=== PATIENT | female | born 1985 | race Two or more races ===

== ENCOUNTER 2019-05-19 10:30 | Emergency (ER) | payer MEDICAID, OTHER ==
[~2019-05-19] VITALS: Ht 157.5 cm; Wt 73.5 kg
[2019-05-19] MEDS ORDERED: IBUPROFEN 600 MG TAB PO ONE (11:00)
[2019-05-19 13:43] VITALS: BP 109/64
== END 2019-05-19 14:12 | disposition home or self-care (01) ==
LOC: ER 10:30
DX: J06.9 Acute upper respiratory infection, unspecified (principal); R11.2 Nausea with vomiting, unspecified; R51 Headache

== ENCOUNTER 2019-11-13 22:31 | Emergency (ER) | payer MEDICAID ==
[~2019-11-13] VITALS: Ht 157.5 cm; Wt 78.9 kg
[2019-11-13 23:05] VITALS: BP 134/84
[2019-11-13 23:42] LABS: Urine Bacteria NONE SEEN /hpf (None Seen); Urine Blood 2+ /uL (Negative); Urine Mucus FEW (None Seen); Urine Specific Gravity 1.029 (1.001-1.035); Urine WBC 8 /hpf (0 - 5)
== END 2019-11-14 01:30 | disposition home or self-care (01) ==
LOC: ER 22:32
DX: N39.0 Urinary tract infection, site not specified (principal)
CPT/HCPCS: 74176; 81001; 81025

== ENCOUNTER 2020-11-02 15:58 | Inpatient (IN) | payer MEDICAID ==
[~2020-11-02] VITALS: Ht 157.5 cm; Wt 76.6 kg
[2020-11-02] MEDS ORDERED: ACETAMINOPHEN 325 MG TAB PO ONE (16:15)
[2020-11-02 16:45] LABS: Basophils # (auto) 0.1 10 ^3/uL (0-0.2); Basophils % (auto) 0.7 % (0.0-2.0); Eosinophils # (auto) 0.1 10 ^3/uL (0-0.8); Eosinophils % (auto) 0.5 % (0.0-7.0); Hematocrit 40.3 % (36.0-46.0); Hemoglobin 13.4 g/dL (12.2-16.2); Lymphocytes # (auto) 0.6 10 ^3/uL (0.4-5.4); Mean Corpuscular Hemoglobin 25.6 pg (28.0-32.0); Mean Corpuscular Hgb Conc. 33.1 g/dL (32.0-36.0); Mean Corpuscular Volume 77.2 fL (80.0-100.0); Monocytes # (auto) 1.1 10 ^3/uL (0-1.3); Monocytes % (auto) 8.9 % (0.0-12.0); Neutrophils # (auto) 10.5 10 ^3/uL (1.6-8.6); Neutrophils % (auto) 84.9 % (37.0-80.0); Red Blood Cells 5.22 10^6/uL (4.0-5.20); Red Cell Distribution Width 15.8 % (11.8-14.3); White Blood Cell 12.4 10^3/uL (4.4-10.8)
[2020-11-02 17:02] LABS: Calcium 8.5 mg/dL (8.5-10.1); Potassium 3.6 mmol/L (3.5-5.1)
[2020-11-02 17:04] LABS: BUN/Creatinine Ratio 7.7
[2020-11-02] MEDS ORDERED: SODIUM CHLORIDE 0.9% 1,000 ML IVB ONE (17:45)
[2020-11-02] MEDS ORDERED: ONDANSETRON HCL 4 MG/2 ML VIAL IV ONE (17:45)
[2020-11-02 18:21] LABS: Magnesium 1.8 mg/dL (1.6-2.6)
[2020-11-02 19:34] LABS: Urine Bacteria FEW /hpf (None Seen); Urine Blood 2+ /uL (Negative); Urine Hyaline Cast MANY /lpf (0 - 2); Urine Mucus MANY (None Seen); Urine Specific Gravity 1.029 (1.001-1.035); Urine WBC 40 /hpf (0 - 5); Urine WBC Clumps PRESENT /hpf (None Seen)
[2020-11-02] MEDS ORDERED: SODIUM CHLORIDE 0.9% 1,000 ML IV ONE (21:00)
[2020-11-02] MEDS ORDERED: levoFLOXacin 500MG 100 ML IV ONE (21:00)
[2020-11-02] MEDS ORDERED: IOHEXOL 300 MG/ML 100ML BOTTLE IJ ONE (21:12)
[2020-11-02 21:40] LABS: Albumin 3.7 g/dL (3.4-5.0); Bilirubin, Direct 0.2 mg/dL (0-0.2)
[2020-11-02 21:42] LABS: Bilirubin, Total 0.8 mg/dL (0.2-1.0); Total Protein 7.6 g/dL (6.4-8.2)
[2020-11-02] MEDS ORDERED: metroNIDAZOLE 500MG/100ML 100 ML IV ONE (22:30)
[2020-11-02] MEDS ORDERED: HYDROcodone-ACET 5/325MG TAB PO PRN (23:00)
[2020-11-02] MEDS ORDERED: ONDANSETRON HCL 4 MG/2 ML VIAL IV PRN (23:00)
[2020-11-02] MEDS ORDERED: ACETAMINOPHEN 325 MG TAB PO PRN (23:00)
[2020-11-03] MEDS: metroNIDAZOLE 500MG/100ML 100 ML IV SCH ×3 (06:34→22:10)
[2020-11-03 07:24] LABS: Basophils # (auto) 0.1 10 ^3/uL (0-0.2); Basophils % (auto) 0.9 % (0.0-2.0); Eosinophils # (auto) 0.1 10 ^3/uL (0-0.8); Hemoglobin 11.9 g/dL (12.2-16.2); Lymphocytes # (auto) 1.2 10 ^3/uL (0.4-5.4); Monocytes # (auto) 1.2 10 ^3/uL (0-1.3); Red Cell Distribution Width 15.5 % (11.8-14.3)
[2020-11-03 07:26] LABS: Eosinophils % (auto) 1.2 % (0.0-7.0); Hematocrit 34.3 % (36.0-46.0); Lymphocytes % (auto) 16.2 % (10.0-50.0); Mean Corpuscular Hemoglobin 26.6 pg (28.0-32.0); Mean Corpuscular Hgb Conc. 34.8 g/dL (32.0-36.0); Mean Corpuscular Volume 76.3 fL (80.0-100.0); Neutrophils # (auto) 4.9 10 ^3/uL (1.6-8.6); Neutrophils % (auto) 65.7 % (37.0-80.0); Nucleated Red Blood Cells % 0.1 %; Red Blood Cells 4.49 10^6/uL (4.0-5.20); White Blood Cell 7.5 10^3/uL (4.4-10.8)
[2020-11-03 07:51] LABS: Calcium 8.2 mg/dL (8.5-10.1); Potassium 3.2 mmol/L (3.5-5.1)
[2020-11-03 07:54] LABS: BUN/Creatinine Ratio 10.2
[2020-11-03] MEDS: levoFLOXacin 500MG 100 ML IV SCH (10:25)
[2020-11-03] MEDS: PANTOPRAZOLE 40 MG/10 ML VIAL INJ IV SCH (10:26)
[2020-11-03 17:00] VITALS: BP 126/86
[2020-11-03 22:00] VITALS: BP 107/74
[2020-11-04 05:00] VITALS: BP 100/73
[2020-11-04] MEDS: metroNIDAZOLE 500MG/100ML 100 ML IV SCH (06:45)
[2020-11-04 09:00] VITALS: BP 119/68
[2020-11-04] MEDS: levoFLOXacin 500MG 100 ML IV SCH (09:02)
[2020-11-04] MEDS: PANTOPRAZOLE 40 MG/10 ML VIAL INJ IV SCH (09:02)
[2020-11-04 10:21] VITALS: BP 119/68
[2020-11-04 12:36] VITALS: BP 111/66
== END 2020-11-04 13:45 | disposition home or self-care (01) | DRG 249 ==
LOC: ER 15:58 → TELE 22:56 → TELE-WESTW 11-03 15:48
PROVIDERS: ADMIT Internal Medicine; ATTEND Internal Medicine
DX: A09 Infectious gastroenteritis and colitis, unspecified (principal); D72.829 Elevated white blood cell count, unspecified; N39.0 Urinary tract infection, site not specified; R53.83 Other fatigue; R59.1 Generalized enlarged lymph nodes; Z20.822 Contact with and (suspected) exposure to COVID-19
CPT/HCPCS: 36415; 71045; 74176; 74177; 80048; 80076; 81001; 81025; 83605; 83690; 83735; 85025; 87086; 87426; 96361; 96365; 96366; 96367; 96375; C9113; G0378; J1956; J2405; J3490

== ENCOUNTER 2021-07-08 00:15 | Emergency (ER) | payer MEDICAID, OTHER ==
[~2021-07-08] VITALS: Ht 157.5 cm; Wt 79.4 kg
[2021-07-08 02:26] VITALS: BP 138/76
[2021-07-08] MEDS ORDERED: IBU600T PO (02:58)
== END 2021-07-08 03:00 | disposition home or self-care (01) ==
LOC: ER 00:15
DX: M79.10 Myalgia, unspecified site (principal); V43.52XA Car driver injured in collision with other type car in traffic accident, initial encounter; Y93.89 Activity, other specified; Y92.410 Unspecified street and highway as the place of occurrence of the external cause; Y99.8 Other external cause status
CPT/HCPCS: 71250; 72125; 73020; 74176

== ENCOUNTER 2021-12-18 11:50 | Emergency (ER) | payer MEDICAID ==
[~2021-12-18] VITALS: Ht 157.5 cm; Wt 79.0 kg
[~2021-12-18 11:50] MED LIST: IBU600T PO
[2021-12-18 14:18] VITALS: BP 128/74
== END 2021-12-18 14:57 | disposition home or self-care (01) ==
LOC: ER 11:50
DX: S90.32XA Contusion of left foot, initial encounter (principal); Z79.1 Long term (current) use of non-steroidal anti-inflammatories (NSAID); X58.XXXA Exposure to other specified factors, initial encounter; Y93.89 Activity, other specified; Y92.89 Other specified places as the place of occurrence of the external cause; Y99.8 Other external cause status
CPT/HCPCS: 73630